=== PATIENT | male | born 1950 ===

== ENCOUNTER 2022-10-28 12:33 | Outpatient (CLI) | payer MEDICARE, OTHER ==
[2022-10-28 13:56] LABS: Bilirubin Neg (Negative); Blood, Urine Negative (Negative); Clarity Clear (Clear); Glucose, Urine (Dipstick) Normal (Negative); Ketone, Urine Negative (Negative); Leukocyte 25 (Negative); Nitrite Negative (Negative); Protein, Urine (Dipstick) Negative (Neg-Trace); Urobilinogen Normal mg/dL (Less than 2)
[2022-10-28 13:58] LABS: Hematocrit 43.5 % (38.8-50.0); Hemoglobin 14.6 g/dL (13.5-17.5); Mean Corpuscular HGB CONC 33.6 g/dL (32.0-36.0); Mean Corpuscular Hemoglobin 30.4 pg (27.0-33.0); Mean Corpuscular Volume 90.4 fl (81.2-95.1); Mean Platelet Volume 11.3 fl (7.4-10.4); Platelet Count 171 10x3/uL (150-450); RBC Distribution Width 12.8 % (11.5-14.5); Red Blood Cell (RBC) Count 4.81 10x6/uL (4.32-5.72); White Blood Cell (WBC) Count 5.4 10x3/uL (3.5-10.5)
[2022-10-28 14:20] LABS: Prothrombin Time 10.9 sec (9.5-12.1)
[2022-10-28 14:26] LABS: RBC/HPF 0-3 HPF (0-3)
[2022-10-28 14:27] LABS: Bacteria/HPF None Seen HPF (None Seen); Calcium Oxalate Crystals 1+ HPF (None Seen); Squamous Epithelial None Seen HPF (0-3)
[2022-10-28 14:28] LABS: Anion Gap 13 mmol/L (10-20); BUN (Urea Nitrogen) 21 mg/dL (8.4-25.7); Calc. Creatinine Clearance 0 mL/min (70-130); Calcium 9.4 mg/dL (7.8-10.44); Carbon Dioxide 24 mmol/L (23-31); Chloride 107 mmol/L (98-107); Estimated GFR 83; Glucose 82 mg/dL (83-110); Potassium 4.2 mmol/L (3.5-5.1); Sodium 140 mmol/L (136-145)
== END 2022-10-28 12:34 | disposition home or self-care (01) ==
LOC: LABBT 12:33
PROVIDERS: ATTEND Urology
DX: Z01.818 Encounter for other preprocedural examination (principal); C61 Malignant neoplasm of prostate
CPT/HCPCS: 71046; 80048; 81001; 85027; 85610; 85730; 87086; 93005; 93010

== ENCOUNTER 2022-11-07 07:15 | Day surgery (SDC) | payer MEDICARE, OTHER ==
[2022-10-28 13:10] VITALS: BMI 26.7
[2022-11-07] MEDS ORDERED: fentaNYL 50 mcg/mL 1 mL Vial ONE (07:22)
[2022-11-07] MEDS ORDERED: Sodium Chloride 0.9% 100 ML ONE (10:11)
[2022-11-07] MEDS ORDERED: cefTRIAXone (ROCEPHIN) 1 GM VIAL ONE (10:11)
[2022-11-07] MEDS ORDERED: Lidocaine 1% PF 5 ML VIAL ONE (10:23)
[2022-11-07] MEDS ORDERED: PROPOFOL 200 MG/20 ML VIAL ONE (10:23)
== END 2022-11-07 13:00 | disposition home or self-care (01) ==
LOC: SDC 07:15
PROVIDERS: ATTEND Urology
PROC: 0VB03ZX Excision of Prostate, Percutaneous Approach, Diagnostic (ICD-10-PCS; principal; 2022-11-07)
DX: C61 Malignant neoplasm of prostate (principal); N40.1 Benign prostatic hyperplasia with lower urinary tract symptoms; I10 Essential (primary) hypertension; E78.5 Hyperlipidemia, unspecified; Z88.1 Allergy status to other antibiotic agents
CPT/HCPCS: 55700; J3010; 88305; G0416; J0696; J2704; J3490